=== PATIENT | male | born 1940 | race Caucasian/White ===

== ENCOUNTER 2023-04-02 08:44 | Day surgery (SDC) | payer MEDICARE ==
[2023-04-02] VITALS (9 sets, daily range): BP systolic 118–150; BP diastolic 61–92
[~2023-04-02] VITALS: Ht 177.8 cm; Wt 122.0 kg
[~2023-04-02 08:44] MED LIST: ACET500 PO; ALBU90OI INH; Aspir 8181 MG PO; COMBIVENT RESPIM4 G1; FURO20 PO; Flonase 0.05% N16 GM; GLIP2.5ER PO; LOSA50 PO; MONT10T PO; PIOG15 PO; POTA10T PO; TAMS.4ER PO; Triamcinolone A15 G3 TOP; ZOCOR20 MG PO
[2023-04-02 09:28] LABS: BASOPHILS ABSOLUTE AUTO 0.07 K/mm3 (0.00-0.23); BASOPHILS PERCENT AUTO 1 % (0-2); EOSINOPHILS ABSOLUTE AUTO 0.33 K/mm3 (0.00-0.68); EOSINOPHILS PERCENT AUTO 4 % (0-6); Hematocrit 43.8 % (37.0-53.0); Hemoglobin 14.5 g/dL (13.5-17.5); IMMATURE GRAN ABSOLUTE AUTO 0.03 K/mm3 (0.00-0.10); IMMATURE GRAN PERCENT AUTO 0 % (0-1); LYMPHOCYTES ABSOLUTE AUTO 1.31 K/mm3 (0.84-5.20); LYMPHOCYTES PERCENT AUTO 15 % (21-46); MONOCYTES ABSOLUTE AUTO 0.67 K/mm3 (0.16-1.47); MONOCYTES PERCENT AUTO 8 % (4-13); Mean Corpuscular HGB 26.9 pg (26.0-34.0); Mean Corpuscular HGB Conc 33.1 g/dL (31.5-36.5); Mean Corpuscular Volume 81 fL (80-100); Mean Platelet Volume 9.9 fL (9.1-12.4); NEUTROPHILS ABSOLUTE AUTO 6.19 K/mm3 (1.96-9.15); NEUTROPHILS PERCENT AUTO 72 % (41-73); Platelet Count 253 K/mm3 (150-400); RDW Coefficient Variation 15.2 % (11.7-14.2); RDW Standard Deviation 44.7 fL (35.1-46.3)
[2023-04-02 09:59] LABS: Bun/Creatinine Ratio 17.9 (12.0-20.0); Calcium, Blood 8.7 mg/dL (8.5-10.1); Creatinine, Blood 1.51 mg/dL (0.60-1.20); Potassium, Blood 3.7 mmol/L (3.5-5.5)
--- NOTE | 2023-04-02 15:15 | NUR ---
PATIENT ARRIVED TO RECOVERY ROOM RESTING COMFORTABLY IN BED. R GROIN SITE C/D/I SOFT/NONTENDER, NO EVIDENCE OF HEMATOMA. SOME MILD RIGHT LOWER EXTREMITY PAIN RELIEVED WITH RESPOSITIONING. VSS ON RA. PATIENT CONVERSING APPROPRIATELY.
--- NOTE | 2023-04-02 15:56 | NUR ---
HOB ELEVATED, R GROIN SITE C/D/I SOFT/NONTENDER, NO EVIDENCE OF BLEEDING. VSS ON RA. PT TOELRATING PO INTAKE WELL.
--- NOTE | 2023-04-02 16:51 | NUR ---
PATIENT STANDING AND USING URINAL AT BEDSIDE WITHOUT DIFFICULTY. L GROIN SITE C/D/I SOFT/NONTENDER, NO EVIDENCE OF BLEEDING. VSS ON RA
--- NOTE | 2023-04-02 17:15 | NUR ---
PATIENT AMBULATING TO RESTROOM USING WALKER WITHOUT DIFFICULTY. L GROIN SITE C/D/I SOFT/NONTENDER, NO EVIDENCE OF HEMATOMA. VSS ON RA.
--- NOTE | 2023-04-02 17:40 | NUR ---
PATIENT DISCHARGED HOME AT THIS TIME. DAUGHTER PRESENT AT BEDSIDE. DISCHARGE INSTRUCTIONS REVIEWED. OFFICE WILL CALL TO SCHEDULE FOLLOW UP APPOINTMENT. PIV REMOVED WITHOUT DIFFICULTY, CATHETER INTACT. L GROIN SITE C/D/I SOFT/NONTENDER, NO EVIDENCE OF HEMATOMA. PATIENT WHEELED TO HOSPITAL ENTRANCE AND DAUGHTER ABLE TO PROVIDE TRANSPORTATION HOME. ALL PATIENT BELONGINGS AND PAPERWORK LEFT WITH PATIENT.
== END 2023-04-02 23:04 | disposition home or self-care (01) ==
LOC: MHTC 08:44
PROVIDERS: Radiology Diagnostic Radiology
DX: I70.223 Atherosclerosis of native arteries of extremities with rest pain, bilateral legs (principal); E11.621 Type 2 diabetes mellitus with foot ulcer; L97.502 Non-pressure chronic ulcer of other part of unspecified foot with fat layer exposed; E11.51 Type 2 diabetes mellitus with diabetic peripheral angiopathy without gangrene; I10 Essential (primary) hypertension; F17.210 Nicotine dependence, cigarettes, uncomplicated
CPT/HCPCS: 76937; 80048; 85025; 99152; 99153; C1714; C1725; C1760; C1769; C1887; C1894; J1644; J2250; J3010; J7030; Q9967

== ENCOUNTER 2023-10-20 04:21 | Day surgery (SDC) | payer OTHER | END 2023-10-20 22:53 | disposition home or self-care (01) | LOC: WOUND 04:21 | DX: I73.9 Peripheral vascular disease, unspecified (principal); I10 Essential (primary) hypertension; E11.40 Type 2 diabetes mellitus with diabetic neuropathy, unspecified; F17.200 Nicotine dependence, unspecified, uncomplicated; Z88.8 Allergy status to other drugs, medicaments and biological substances | CPT/HCPCS: G0463 ==

== ENCOUNTER 2024-02-24 11:02 | Day surgery (SDC) | payer OTHER ==
[~2024-02-24] VITALS: Ht 177.8 cm; Wt 117.9 kg
[~2024-02-24 11:02] MED LIST changes: +OZEMPIC0.25 MG/02 SC; +TERB250 PO
[2024-02-24] MEDS ORDERED: NS 250 ML IV ONE (14:32)
[2024-02-24] MEDS ORDERED: Midazolam HCl 1MG / ML 2ML Vial ONE (14:32)
[2024-02-24] MEDS ORDERED: FentaNYL Citrate 50 MCG/ML 2 ML Injection ONE (14:32)
[2024-02-24] MEDS ORDERED: Nitroglycerin 2 MG/20 ML BTL ONE (14:33)
[2024-02-24] MEDS ORDERED: Heparin Sodium 1000 Units/ML 10ML MDV ONE (14:33)
[2024-02-24] MEDS ORDERED: NS 100 ML IV ONE (14:33)
[2024-02-24] MEDS ORDERED: NS 2,000 ML IV ONE (14:33)
[2024-02-24] MEDS ORDERED: Verapamil HCL 2.5 MG/ML 2ML Injection ONE (15:35)
[2024-02-24 16:20] VITALS: BP 128/71
[2024-02-24 16:30] VITALS: BP 128/70
[2024-02-24 16:45] VITALS: BP 128/70
--- NOTE | 2024-02-24 16:55 | NUR ---
PATIENT BACK FROM PROCEDURE AT 1625, DRWOSY, AWAKENS TO VOICE, DENIES COMPLAINTS. RIGHT GROIN SITE STABLE, SOFT AND NONTENDER, W/O SWELLING, HEMATOMA, OR BLEEDING. RIGHT PEDAL SITE WNL WELL, W/O SWELLING, HEMATOMA, OR BLEEDING. VSS. PT ABLE TO TOLERATE SIPS OF APPLEJUICE. SITE CHECKS AND CIRC CHECK Q 15MIN. POSITIVE DOPPLER TO RIGHT AND LEFT PT/DP.
[2024-02-24 17:00] VITALS: BP 128/70
[2024-02-24 17:30] VITALS: BP 147/58
--- NOTE | 2024-02-24 17:49 | NUR ---
Pt groin site assessed, remains unchanged and wnl, Pt HOB elevated at this time, site remains wnl. food and fluids provided. family to bedside.
[2024-02-24 18:00] VITALS: BP 159/85
--- NOTE | 2024-02-24 18:43 | NUR ---
PT DISCHARGED HOME IN STABLE CONDITION AT 1835. VERBAL AND WRITTEN DISCHARGE INSTRUCTIONS TO PT AND PT'S FAMILY. PT VOIDING AND EATING W/O DIFFICULTY. LEFT GROIN STABLE W/O HEMATOMA, SWELLING, TENDERNESS, OR BLEEDING. RIGHT PEDAL SITE STABLE WELL. VSS. PT DISCHARGED HOME IN CARE OF SON-IN-LAW.
== END 2024-02-24 23:00 | disposition home or self-care (01) ==
LOC: MHTC 11:02
DX: E11.51 Type 2 diabetes mellitus with diabetic peripheral angiopathy without gangrene (principal); I70.261 Atherosclerosis of native arteries of extremities with gangrene, right leg; L97.513 Non-pressure chronic ulcer of other part of right foot with necrosis of muscle; F17.210 Nicotine dependence, cigarettes, uncomplicated; Z79.899 Other long term (current) drug therapy; Z79.84 Long term (current) use of oral hypoglycemic drugs; Z88.8 Allergy status to other drugs, medicaments and biological substances
CPT/HCPCS: 36200; 36245; 36248; 37228; 37232; 75625; 75716; 75774; 76937; 99152; 99153; C1725; C1760; C1769; C1887; C1894; J1644; J2250; J3010; J7030; J7050; Q9967

== ENCOUNTER 2024-03-11 09:02 | Day surgery (SDC) | payer OTHER ==
[~2024-03-11] VITALS: Ht 177.8 cm; Wt 115.0 kg
[2024-03-11 09:30] VITALS: BP 117/62
[2024-03-11] MEDS ORDERED: NS 250 ML IV ONE (10:22)
[2024-03-11] MEDS ORDERED: Heparin Sodium 1000 Units/ML 10ML MDV ONE ×2 (10:22→14:05)
[2024-03-11] MEDS ORDERED: NS 1,000 ML IV ONE ×2 (10:22→13:25)
[2024-03-11] MEDS ORDERED: Nitroglycerin 2 MG/20 ML BTL ONE (10:22)
[2024-03-11] MEDS ORDERED: FentaNYL Citrate 50 MCG/ML 2 ML Injection ONE ×2 (13:25→14:46)
[2024-03-11] MEDS ORDERED: Midazolam HCl 1MG / ML 2ML Vial ONE (13:25)
[2024-03-11] MEDS ORDERED: NS 100 ML IV ONE (14:39)
[2024-03-11 16:04] VITALS: BP 142/65
--- NOTE | 2024-03-11 16:07 | NUR ---
PT BACK TO RECOVERY ROOM. PT GIVEN SIPS OF WATER. REMINDED TO LAY FLAT. PT DEMONSTRATES UNDERSTANDING. L GROIN SITE IS SOFE AND NON TENTDER, NO HEMATOMA.
[2024-03-11 16:15] VITALS: BP 120/66
[2024-03-11] MEDS ORDERED: CLOP75 PO (16:26)
[2024-03-11] MEDS ORDERED: Clopidogrel Bisulfate 300 MG Cap ONE (16:28)
[2024-03-11 16:30] VITALS: BP 129/66
--- NOTE | 2024-03-11 16:47 | NUR ---
PT SITTING UP AT 30 DEGREES. TAKING SIPS OF WATER, GROIN SITE IS SOFE AND NONTENDER, NO BLEEDING.
--- NOTE | 2024-03-11 17:12 | NUR ---
REPROT TO JOSE SINGER TO ASSUME CARE.
--- NOTE | 2024-03-11 17:29 | NUR ---
patient sitting up in bed left groin site soft and nontender, no hematoma, no bleeding patient eating dinner
--- NOTE | 2024-03-11 18:13 | NUR ---
patient verbalized understanding of discharge instructions and precautions, up to restroom and dressed by self without difficulty, left groin site remains soft and nontender, no hematoma, no bleeding, and dressing inatct.iv site dced with catheter itact, patient discharged via wheelchair to waiting car and family driving.
== END 2024-03-11 22:51 | disposition home or self-care (01) ==
LOC: MHTC 09:02
DX: E11.52 Type 2 diabetes mellitus with diabetic peripheral angiopathy with gangrene (principal); I70.261 Atherosclerosis of native arteries of extremities with gangrene, right leg; I70.222 Atherosclerosis of native arteries of extremities with rest pain, left leg; F17.290 Nicotine dependence, other tobacco product, uncomplicated; Z88.8 Allergy status to other drugs, medicaments and biological substances; Z79.82 Long term (current) use of aspirin; Z79.84 Long term (current) use of oral hypoglycemic drugs; Z79.899 Other long term (current) drug therapy
CPT/HCPCS: 36247; 37226; 75716; 75774; 76937; 85347; 99152; 99153; A9270; C1725; C1760; C1769; C1874; C1887; C1894; C9772; J1644; J2250; J3010; J7030; J7050; Q9967

== ENCOUNTER 2024-03-26 09:01 | Day surgery (SDC) | payer OTHER ==
[2024-03-26] VITALS (7 sets, daily range): BP systolic 110–133; BP diastolic 57–90
[~2024-03-26] VITALS: Ht 177.8 cm; Wt 115.2 kg
[~2024-03-26 09:01] MED LIST changes: +CLOP75 PO
[2024-03-26] MEDS ORDERED: NS 500 ML IV ONE (09:05)
[2024-03-26] MEDS ORDERED: NS 1,000 ML IV ONE ×3 (09:05→11:28)
[2024-03-26] MEDS ORDERED: Heparin Sodium 1000 Units/ML 10ML MDV ONE ×2 (09:05→10:39)
[2024-03-26] MEDS ORDERED: Nitroglycerin 2 MG/20 ML BTL ONE (09:06)
[2024-03-26] MEDS ORDERED: Midazolam HCl 1MG / ML 2ML Vial ONE (09:10)
[2024-03-26] MEDS ORDERED: FentaNYL Citrate 50 MCG/ML 2 ML Injection ONE (09:10)
[2024-03-26] MEDS ORDERED: Verapamil HCL 2.5 MG/ML 2ML Injection ONE (11:07)
--- NOTE | 2024-03-26 14:25 | NUR ---
PT AMBULATES TO RESTROOM AND BACK WITHOUT DIFF. PT DRESSES SELF. DENIES NEEDS. PT SITES REMAIN STABLE. C/D/I. PT VERBALIZES UNDERSTANDING WRITTEN AND VERBAL INSTRUCTIONS. DENIES QUESTIONS. PT IV DC'D. CATH INTACT. PRESSURE DSG APPLIED
== END 2024-03-26 15:29 | disposition home or self-care (01) ==
LOC: MHTC 09:01
DX: E11.52 Type 2 diabetes mellitus with diabetic peripheral angiopathy with gangrene (principal); I70.223 Atherosclerosis of native arteries of extremities with rest pain, bilateral legs; E11.42 Type 2 diabetes mellitus with diabetic polyneuropathy; F17.290 Nicotine dependence, other tobacco product, uncomplicated; Z79.82 Long term (current) use of aspirin; Z79.84 Long term (current) use of oral hypoglycemic drugs; Z79.899 Other long term (current) drug therapy; Z88.8 Allergy status to other drugs, medicaments and biological substances; Z89.421 Acquired absence of other right toe(s)
CPT/HCPCS: 36217; 36218; 37220; 37224; 75716; 75774; 76937; 99152; 99153; C1725; C1760; C1769; C1887; C1894; C9772; J1644; J2250; J3010; J7030; J7050; Q9967

== ENCOUNTER → 2024-03-29 | Outpatient (CLI) | payer OTHER | END | disposition home or self-care (01) | LOC: LAB 11:28 → LAB SHORT 11:28 | DX: Z89.421 Acquired absence of other right toe(s) (principal) | CPT/HCPCS: 88305; 88311 ==

== ENCOUNTER 2024-05-31 17:02 | Inpatient (IN) | payer OTHER ==
[~2024-05-31] VITALS: Ht 177.8 cm; Wt 110.0 kg
[2024-05-31 18:05] LABS: BASOPHILS ABSOLUTE AUTO 0.04 K/mm3 (0.00-0.23); BASOPHILS PERCENT AUTO 0 % (0-2); EOSINOPHILS ABSOLUTE AUTO 0.15 K/mm3 (0.00-0.68); EOSINOPHILS PERCENT AUTO 1 % (0-6); Hematocrit 38.5 % (37.0-53.0); IMMATURE GRAN ABSOLUTE AUTO 0.04 K/mm3 (0.00-0.10); IMMATURE GRAN PERCENT AUTO 0 % (0-1); LYMPHOCYTES PERCENT AUTO 8 % (21-46); MONOCYTES ABSOLUTE AUTO 0.96 K/mm3 (0.16-1.47); MONOCYTES PERCENT AUTO 8 % (4-13); Mean Corpuscular HGB 27.1 pg (26.0-34.0); Mean Corpuscular HGB Conc 33.8 g/dL (31.5-36.5); Mean Corpuscular Volume 80 fL (80-100); Mean Platelet Volume 9.4 fL (9.1-12.4); NEUTROPHILS ABSOLUTE AUTO 9.75 K/mm3 (1.96-9.15); NEUTROPHILS PERCENT AUTO 82 % (41-73); Platelet Count 325 K/mm3 (150-400); RDW Coefficient Variation 14.6 % (11.7-14.2); RDW Standard Deviation 42.8 fL (35.1-46.3); White Blood Cell Count 11.94 K/mm3 (4.00-11.30)
[2024-05-31 18:34] LABS: Albumin, Blood 2.6 g/dL (3.4-5.0); Albumin/Globulin Ratio 0.6 (0.8-1.8); Bilirubin, Total 0.3 mg/dL (0.1-1.0); Bun/Creatinine Ratio 19.4 (12.0-20.0); Calcium, Blood 9.3 mg/dL (8.5-10.1); Creatinine, Blood 1.29 mg/dL (0.60-1.20); Globulin, Blood 4.5 g/dL (2.2-4.0); Total Protein, Blood 7.1 g/dL (6.4-8.2)
[2024-05-31] MEDS ORDERED: Cefepime HCl 2,000 MG in NS 100 ML IV ONE (23:15)
[2024-05-31] MEDS ORDERED: Ketorolac Tromethamine 15mg Vial IV ONE (23:20)
[2024-06-01] MEDS ORDERED: Acetaminophen 325 MG TABLET PO PRN (00:30)
[2024-06-01] MEDS ORDERED: Ondansetron HCl 2 MG / ML 2ML Vial IV PRN (00:35)
[2024-06-01] MEDS ORDERED: Vancomycin HCL 2,000 MG in NS 500 ML IV ONE (01:00)
[2024-06-01 05:33] LABS: Bun/Creatinine Ratio 20.6 (12.0-20.0); Calcium, Blood 8.7 mg/dL (8.5-10.1); Creatinine, Blood 1.41 mg/dL (0.60-1.20); Potassium, Blood 3.9 mmol/L (3.5-5.5)
[2024-06-01 06:48] LABS: BASOPHILS ABSOLUTE AUTO 0.05 K/mm3 (0.00-0.23); BASOPHILS PERCENT AUTO 0 % (0-2); EOSINOPHILS ABSOLUTE AUTO 0.41 K/mm3 (0.00-0.68); EOSINOPHILS PERCENT AUTO 4 % (0-6); Hematocrit 35.9 % (37.0-53.0); IMMATURE GRAN ABSOLUTE AUTO 0.04 K/mm3 (0.00-0.10); IMMATURE GRAN PERCENT AUTO 0 % (0-1); LYMPHOCYTES ABSOLUTE AUTO 1.23 K/mm3 (0.84-5.20); LYMPHOCYTES PERCENT AUTO 11 % (21-46); MONOCYTES ABSOLUTE AUTO 0.97 K/mm3 (0.16-1.47); MONOCYTES PERCENT AUTO 9 % (4-13); Mean Corpuscular HGB 27.1 pg (26.0-34.0); Mean Corpuscular HGB Conc 33.4 g/dL (31.5-36.5); Mean Corpuscular Volume 81 fL (80-100); Mean Platelet Volume 9.2 fL (9.1-12.4); NEUTROPHILS ABSOLUTE AUTO 8.47 K/mm3 (1.96-9.15); NEUTROPHILS PERCENT AUTO 76 % (41-73); Platelet Count 304 K/mm3 (150-400); RDW Coefficient Variation 14.6 % (11.7-14.2); RDW Standard Deviation 43.5 fL (35.1-46.3); Red Blood Cell Count 4.42 M/mm3 (4.30-5.90); White Blood Cell Count 11.17 K/mm3 (4.00-11.30)
[2024-06-01] MEDS ORDERED: Docusate Sodium 100 MG Cap PO SCH (09:00)
[2024-06-01] MEDS ORDERED: Enoxaparin 40 MG/0.4 ML SYR SC SCH (09:00)
[2024-06-01] MEDS ORDERED: Atorvastatin 10 MG Tab PO SCH (09:00)
[2024-06-01] MEDS ORDERED: Lactobacil 2-S.Thermo-Bifido 1 1 Cap PO SCH (09:00)
[2024-06-01] MEDS ORDERED: Losartan Potassium 50 MG Tab PO SCH (09:00)
[2024-06-01] MEDS ORDERED: CefTRIAXone Sodium 2,000 MG in NS 100 ML IV SCH (11:00)
[2024-06-01] MEDS ORDERED: Insulin Regular 100 UNIT/ML 10ML Vial SC SCH (12:00)
[2024-06-01 13:49] VITALS: BP 132/68
[2024-06-01] MEDS ORDERED: HYDROcodone 5-APAP 325 TAB PO PRN ×2 (14:00→16:35)
--- NOTE | 2024-06-01 19:18 | NUR ---
new admission pt up rom er vss in independant in . right index toe amputation red and swollen with fowel smell, pictures taken and in chart. dr Osorio in to assess and scheduled for sx tomorrow. call light within reach.
[2024-06-01 19:31] VITALS: BP 117/42
[2024-06-02] MEDS ORDERED: NS 250 ML IV PRN (01:35)
[2024-06-02] MEDS ORDERED: Vancomycin HCL 1,500 MG in NS 250 ML IV SCH (02:00)
[2024-06-02 02:24] VITALS: BP 130/65
--- NOTE | 2024-06-02 04:22 | NUR ---
SHIFT SUMMARY ADMITTED FOR OSTEOMYELITIS OF RIGHT FOOT. DNR CODE. PLAN IS FOR ANOTHER SURGICAL PROCEDURE TODAY FOR FURTHER TOE AMPUTATIONS ON THAT FOOT. 2ND RIGHT TOE PREVIOUSLY AMPUTATED ON 05/29/24. PODIATRY CONSULT IS DR. MCFADDEN. ADA DIET TYPICALLY. HE HAS BEEN ON CLEAR LIQUIDS SINCE MIDNIGHT. HE WILL BE NPO AFTER A CLEAR LIQUID BREAKFAST. ON RA. A&O X4. INDEPENDENT IN ROOM W/CANE. PAIN MEDICATION GIVEN THIS SHIFT. IV ANTIB RX GIVEN THIS SHIFT.
[2024-06-02 07:26] VITALS: BP 141/66
[2024-06-02] MEDS ORDERED: Arginine/Glutamine/Calcium Hmb 1 Packet PO SCH (11:35)
[2024-06-02] MEDS ORDERED: FentaNYL Citrate 50 MCG/ML 2 ML Injection IV PRN (13:35)
[2024-06-02] MEDS ORDERED: Albuterol HFA200 ACT/6.7 GM INH INH PRN (13:40)
[2024-06-02] MEDS ORDERED: Aspirin 81 MG TabEC PO SCH (14:00)
[2024-06-02] MEDS ORDERED: Furosemide 20 MG Tab PO SCH (14:00)
[2024-06-02 14:47] VITALS: BP 124/67
[2024-06-02 16:47] VITALS: BP 136/61
--- NOTE | 2024-06-02 19:29 | NUR ---
SHIFT SUMMARY- PT ALERT AND ORIENTED, INDEPENDENT IN THE ROOM. PULSE IN THE PT RIGHT FOOT IS PPRESENT BUT VERY FAINT, MD AWARE. PLAN IS FOR THE PT TO GO TO THE CLINICAL LABORATORY ASSISTANT WITH DR CROWE TOMORROW FOR REVASC PROCEDURE. NPO AT MIDNIGHT FOR THE PROCEDURE. HEPARIN ORDERED FOR DVT PROPHYLAXIS SCD'S ARE TOO PAINFUL TO USE, OK FOR PT TO HAVE HEPARIN TONIGHT TOMORROW AM THE DOSE SHOULD BE HELD PRE PROCEDURE (PER DR FLYNN). PT PO PLAVIX AND ASPIRIN DC'D PER DR FLYNN. FRIDAY THE PT WILL GO FOR TOE AMPUTATION WITH DR MCFADDEN. FAMILY IS AWARE OF THE PLAN IS THE PT. PT HAD A FULL SHOWER TODAY, FOOT WOUND KELLY, IT HAS BEEN (DR DOLAN). PT IN BED, CALL LIGHT IN REACH NO S&S OF DISTRESS NOTED AT THE TIME OF BEDSIDE REPORT.
[2024-06-02 19:32] VITALS: BP 125/62
[2024-06-02] MEDS ORDERED: Heparin Sodium 5000 Units/ML 1ML MDV SC SCH (21:00)
[2024-06-03] VITALS (12 sets, daily range): BP systolic 105–167; BP diastolic 56–78
[2024-06-03 01:32] LABS: Vancomycin, Trough 11.5 ug/mL (5.0-10.0)
[2024-06-03] MEDS ORDERED: Vancomycin HCL 1,750 MG in NS 500 ML IV SCH (02:30)
[2024-06-03 03:05] LABS: Bun/Creatinine Ratio 24.6 (12.0-20.0); Calcium, Blood 9.3 mg/dL (8.5-10.1); Creatinine, Blood 1.18 mg/dL (0.60-1.20); Potassium, Blood 4.2 mmol/L (3.5-5.5)
--- NOTE | 2024-06-03 04:03 | NUR ---
SHIFT SUMMARY ADMITTED FOR OSTEOMYELITIS OF RIGHT FOOT. FULL CODE. REVASCULARIZATION PLANNED FOR TODAY. PT HAS BEEN NPO SINCE MIDNIGHT. DR. MCFADDEN IS PODIATRY CONSULT. ANTIB RX ARE SCHEDULED. A&O X4, ON RA, INDEPENDENT IN ROOM. Q6 CBG'S, LOW SS. NO NEW CONCERNS THIS SHIFT.
[2024-06-03] MEDS ORDERED: Fluticasone 0.05% Nasal Spray SCH (09:00)
[2024-06-03] MEDS ORDERED: Clopidogrel Bisulfate 75 MG Tab PO SCH (09:00)
[2024-06-03] MEDS ORDERED: Montelukast Sodium 10 MG Tab PO SCH (09:00)
[2024-06-03] MEDS ORDERED: Tamsulosin HCl 0.4 MG Cap PO SCH (09:00)
[2024-06-03] MEDS ORDERED: NS 100 ML IV ONE (15:53)
[2024-06-03] MEDS ORDERED: Heparin Sodium 1000 Units/ML 10ML MDV ONE ×2 (15:53→16:55)
[2024-06-03] MEDS ORDERED: NS 250 ML IV ONE (15:54)
[2024-06-03] MEDS ORDERED: NS 1,000 ML IV ONE ×2 (15:54→16:16)
[2024-06-03] MEDS ORDERED: FentaNYL Citrate 50 MCG/ML 2 ML Injection ONE (16:16)
[2024-06-03] MEDS ORDERED: Midazolam HCl 1MG / ML 2ML Vial ONE (16:16)
[2024-06-03] MEDS ORDERED: Verapamil HCL 2.5 MG/ML 2ML Injection ONE (17:07)
[2024-06-03] MEDS ORDERED: Nitroglycerin 2 MG/20 ML BTL ONE (17:45)
--- NOTE | 2024-06-03 18:34 | NUR ---
TRANSFER TO PCU POST REVASC. ALERT AND ORIENTED. OVERALL SLEEPY. ABLE TO TELL ME DETAILS OF WHY HE IS HERE AND ABLE TO VERBALIZE INSTRUCTION ON LAYING FLAT POST REVASC WITH LEFT FEMORAL SITE. ON ROOM AIR SATING MID 90'S. DENIES SOB/COUGH. TELE SHOWING SR WITH HR 70-80'S. DENIES CHEST PAIN/PRESSURE/PALPITATIONS. S/P REVASC TO RLE WITH LEFT GROIN SITE WELL RIGHT PEDAL SITE. SITES SOFT AND NONTENDER. NO SIGNS OF BLEEDING. DRESSING C/D/I. VERY FAINT RIGHT PEDAL PULSE. RIGHT LOWER EXTREMITY PALE, COOL AND DRY. PLAN FOR NPO AT MIDNIGHT FOR SURGERY WITH PODIATRY 06/04. Q6 BLOOD SUGARS. POST REVASC VITALS IN PROGRESS. CURRENT VITALS STABLE. PATIENT DENIES PAINS, LAYING FLAT IN BED. CALL LIGHT IN REACH.
--- NOTE | 2024-06-03 18:35 | NUR ---
TRANSFER NOTE- PT WAS TRANSFERED TO PCU 18 AFTER REVASC PROCEDURE. CALLED AND GAVE TELEPHONE REPORT TO BOARDER HAND. PT BELONGINGS WERE TAKEN DOWN TO PCU 18. NO S&S OF DISTRESS NOTED AT THE TIME OF PT TRANSPORT VIA TO COVERSTITCH MACHINE OPERATOR.
[2024-06-04] VITALS (21 sets, daily range): BP systolic 101–147; BP diastolic 52–73
--- NOTE | 2024-06-04 04:55 | NUR ---
SHIFT SUMMARY THIS RN ASSUMED CARE OF PATIENT AT 1900. PT A&O X4. ABLE TO MAKE NEEDS KNOWN. CALLING APPROPRIATELY. VSS. LEFT FEMORAL ACCESS SITE SOFT/NONTENDER, NO BLEEDING/OOZING NOTED. DRESSING INTACT. ACCESS ON RT FOOT WNL, NO BLEEDING/DISCOLORATION NOTED, DRESSING INTACT. 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 PT HAS BEEN NPO SINCE MIDNIGHT FOR AMPUTATION TODAY. PT ABLE TO REPOSITION SELF INDEPENDENTLY IN BED. SBA TO BATHROOM WITH FWW. NO ACUTE CHANGES OVERNIGHT. BED IN LOWEST POSITION AND CALL LIGHT WITHIN REACH. THIS RN WILL REPORT TO ONCOMING DAYSHIFT RN.
[2024-06-04] MEDS ORDERED: propofoL 100 ML IV ONE (12:10)
[2024-06-04] MEDS ORDERED: Lactated Ringer's 1,000 ML IV SCH (12:15)
[2024-06-04] MEDS ORDERED: Bupivacaine 0.5% HCl 5 MG/ML 30MLVIAL ONE (12:26)
--- NOTE | 2024-06-04 12:40 | NUR ---
Patient confirms NPO status and agrees with scheduled surgery. History, Chart, Medications and Allergies reviewed before start of procedure.
--- NOTE | 2024-06-04 13:05 | NUR ---
AT ABOUT 1140 THE PT HAD A 6 SEC BEAT RUN OF SVT. PT ASYPTOMATIC. DR. KARIS DOLAN.
--- NOTE | 2024-06-04 13:07 | NUR ---
MORNING SUMMARY THE PT IS A&OX4, SBA W/ FWW FOR TX, AND HE IS ABLE TO MAKE HIS NEEDS KNOWN . THE PT HAS BEEN NPO FOR SURGERY W/ AMPUTATION OF THE 2-3 TOES ON THE RIGHT FOOT. THE PT HAS DENIED ANY PAIN, BUT HAS CHRONIC NEUROPATHY IN BLE. HE HAS MULTIPLE WOUNDS ON HIS RIGHT FOOT THAT ARE OPEN TO AIR. AWARE. THE PT HAS BEE SR W/ BB ON TELE AND BP STABLE. HE IS ON RA W/ SP02 >93% AND HE DENIES ANY SOB. THE PT WENT TO THE OR ABOUT 1215. HE IS SURGICAL STATUS W/ TELE. SEE NOTES FOR ANY UPDATES.
[2024-06-04] MEDS ORDERED: Lidocaine 1%-Epineph 1:100000 20 ML MDV INJ ONE (13:10)
[2024-06-04] MEDS ORDERED: Albuterol 2.5 MG/3 ML VIAL ONE (14:01)
--- NOTE | 2024-06-04 15:17 | NUR ---
PT BACK FROM THE OR AFTER THIRD TOE AMPUTATION ON THE RIGHT FOOT. THE PT HAS HIS FOOT WRAPPED AND EXPOSING HIS GREAT TOE AND FOURTH AND FIFTH TOE. HIS FOURTH AND FIFTH TOE ARE PURPLE IN COLOR WITH CAP REFILL 3-[address] MCFADDEN AWARE PER REPORT FROM EDUARDO LAUREN RN. HIS GREAT TOE HAS CAP REFILL <3 SEC. THE PT IS VERY DROWSY AND IS SLEEPING. VS STABLE AND RUNNING IN SEQUENCE PER PROTOCOL. WHEN ASKED IF THE PT WANTS THIS DOCUMENT SPECIALIST TO CALL FAMILY HE SAID "NO THEY WILL BE IN SOON". SEE NOTES FOR UPDATES.
--- NOTE | 2024-06-04 16:50 | NUR ---
When assessing the pt's right foot about 1630 his fourth and fifth toes were noteably more purple in color and the cap refill is 5-6 seconds. His right great toe is at three seconds in cap refill. corporate quality engineer evaluated the pt's foot as well. Dr. Osorio was called and stated to loosen the uli wrap so it is on without any stretch and reevaluate. Call if it is unchanged. See notes for updates.
[2024-06-04] MEDS ORDERED: Insulin Regular 100 UNIT/ML 10ML Vial SC SCH ×2 (17:25→21:00)
--- NOTE | 2024-06-04 17:51 | NUR ---
AFTER LOOSENING THE PT'S HARSHA WRAP PER DR. MCFADDEN REQUEST, THE PT'S RIGHT GREAT TOE HAS CAP REFILL <3 SECONDS AND HAS SOME PINK UNDERTONE W/ SOME PURPLE STILL NOTE. THE PT'S FIFTH TOE HAS CAP REFILL AT THREE SECONDS AND HAS BETTER COLOR WELL. PURPLE TONES STILL NOTED. THE PT'S SECOND TOE HAS CAP REFILL 3-4 SECONDS AND IS A DUSKY PURPLE COLOR. THIS WAS DISCUSSED WITH THE GLAZE HANDLER. VS REMAIN STABLE. FAMILY AT BEDSIDE AND UPDATED ON CARE.
--- NOTE | 2024-06-04 19:12 | NUR ---
Dr. Osorio to bedside to see the pt. Care handed off the Jovan GARCIA.
--- NOTE | 2024-06-04 21:10 | NUR ---
START OF SHIFT THIS RN ASSUMED CARE AT APPROXIMATELY 1905. MD AT BEDSIDE TO ASSESS R FOOT AND TOES. MD STATED TO CONTINUE TO MONITOR AND WILL REASSESS IN THE AM. PT RESTING COMFORTABLY IN BED W/O ANY PAIN OR COMPLAINTS. PT FOOT DRESSING REDRESSED AND PICTURE UPDATED IN CHART. WILL CONTINUE PLAN OF CARE.
[2024-06-05 01:36] LABS: BASOPHILS ABSOLUTE AUTO 0.06 K/mm3 (0.00-0.23); BASOPHILS PERCENT AUTO 1 % (0-2); EOSINOPHILS PERCENT AUTO 4 % (0-6); Hematocrit 35.4 % (37.0-53.0); Hemoglobin 11.6 g/dL (13.5-17.5); IMMATURE GRAN ABSOLUTE AUTO 0.04 K/mm3 (0.00-0.10); IMMATURE GRAN PERCENT AUTO 0 % (0-1); LYMPHOCYTES ABSOLUTE AUTO 1.05 K/mm3 (0.84-5.20); LYMPHOCYTES PERCENT AUTO 9 % (21-46); MONOCYTES ABSOLUTE AUTO 0.88 K/mm3 (0.16-1.47); MONOCYTES PERCENT AUTO 8 % (4-13); Mean Corpuscular HGB 26.5 pg (26.0-34.0); Mean Corpuscular HGB Conc 32.8 g/dL (31.5-36.5); Mean Corpuscular Volume 81 fL (80-100); Mean Platelet Volume 9.4 fL (9.1-12.4); NEUTROPHILS ABSOLUTE AUTO 8.84 K/mm3 (1.96-9.15); NEUTROPHILS PERCENT AUTO 79 % (41-73); Platelet Count 377 K/mm3 (150-400); RDW Coefficient Variation 14.6 % (11.7-14.2); RDW Standard Deviation 43.3 fL (35.1-46.3); Red Blood Cell Count 4.38 M/mm3 (4.30-5.90); White Blood Cell Count 11.27 K/mm3 (4.00-11.30)
[2024-06-05 02:01] LABS: Anion Gap 10 mmol/L (3-11); Blood Urea Nitrogen 25 mg/dL (8-24); Bun/Creatinine Ratio 19.7 (12.0-20.0); CO2, Blood 27 mmol/L (21-32); Calcium, Blood 8.5 mg/dL (8.5-10.1); Chloride, Blood 109 mmol/L (98-108); Creatinine, Blood 1.27 mg/dL (0.60-1.20); Glomerular Filtration Rate 57 (60-); Glucose, Blood 122 mg/dL (70-99); Potassium, Blood 3.6 mmol/L (3.5-5.5); Sodium, Blood 142 mmol/L (136-145); Vancomycin, Trough 17.5 ug/mL (5.0-10.0)
[2024-06-05 03:02] VITALS: BP 132/60
--- NOTE | 2024-06-05 06:34 | NUR ---
SHIFT SUMMARY PT ALERT AND ORIENTED TIMES 4. PT TRANSFER FROM PCU. PT POST OP TODAY FROM RIGHT 3RD TOE AMPUTATION. DRESSING CHANGED JUST PRIOR TO TRANSFER AND IS CLEAN, NO SIGNS OF LEAKING. PT MADE COMFORTABLE IN BED AND APPEARS ABLE TO MAKE NEEDS KNOWN. PT ON ROOM AIR, HAS RIGHT FOOT BOOT FOR AMBULATING. BED IN LOW POSITION, CALL LIGHT WITHIN REACH, RAILS TIMES 2.
[2024-06-05 07:35] VITALS: BP 132/64
[2024-06-05] MEDS ORDERED: OxyCODONE HCL 5 MG TAB PO PRN (10:50)
[2024-06-05 15:06] VITALS: BP 123/65
--- NOTE | 2024-06-05 17:56 | NUR ---
SHIFT SUMMARY MR MENDOZA HAD CONCERNS OVER PAIN CONTROL THIS MORNING. HE SAID WHEN HE HAD HIS LAST TOE AMPUTATION HE DID NOT HAVE MUCH PAIN. DR DYSON NOTIFIED AND PAIN MEDICATIONS SWITCHED TO OXY WHICH WORKED WELL TO HELP HIS COMFORT. HE HAS A SURGICAL SHOE AND HAS BEEN REMINDED NOT TO GET UP WITHOUT WEARNING IT, REQUESTED THAT HE NOT GET UP WITHOUT CALLING FOR ASSISTANCE, AND TO ONLY PARIALLY WEIGHT BEAR ON THE RIGHT FOOT. HE DID HAVE SOME BLEEDING THROUGH TO THE OUTSIDE OF THE DRESSING AND THE KERLEX WRAP WAS REMOVED AND REPLACED. ON TELEMETRY IN SR, NO CALLS FROM [facility]. TOES THAT ARE VISIBLE ON THE RIGHT FOOT ARE PALE, SLOW CAPILLARY REFILL. PT SAID BOTH FEET HAVE DECREASED SENSATION WHICH IS BASELINE FOR HIM. BED LOW, CALL LIGHT IN REACH.
[2024-06-05 21:25] VITALS: BP 132/59
[2024-06-06 02:38] VITALS: BP 141/67
[2024-06-06 06:29] LABS: Bun/Creatinine Ratio 23.9 (12.0-20.0); Calcium, Blood 8.8 mg/dL (8.5-10.1); Creatinine, Blood 1.17 mg/dL (0.60-1.20); Potassium, Blood 3.8 mmol/L (3.5-5.5)
[2024-06-06 07:51] VITALS: BP 134/68
[2024-06-06 15:06] VITALS: BP 118/55
--- NOTE | 2024-06-06 16:43 | NUR ---
SHIFT SUMMARY MR MENDOZA REPORTS THAT HIS PAIN IS WELL CONTROLLED TODAY ON THE OXYCODONE. HE HAS BEEN UP THE THE BATHROOM, UP TO THE CHAIR, HE'S DOING WELL PARTIALLY WEIGHT BEARING WITH THE WALKER AND SURGICAL SHOE. HE STILL HAS SOME BLOODY DRAINAGE ONTO THE KERLEX OUTER BANDAGE. HIS VISIBLE TOES ARE MORE PINK AND WARM TODAY, GOOD CAPILLARY REFILL. HE DOES HAVE NUMBNESS TO THE RIGHT FOOT. SUPPORTIVE FAMILY HERE TODAY. IN BED NOW, BED LOW, CALL LIGHT IN REACH.
[2024-06-06 19:57] VITALS: BP 131/59
[2024-06-07 03:56] VITALS: BP 139/64
--- NOTE | 2024-06-07 07:38 | NUR ---
SHIFT SUMMARY PT ALERT AND ORIENTED TIMES 4. PT DAY 3 POST OP, FROM RIGHT 3RD TOE AMPUTATION. DRESSING IS CLEAN, NO SIGNS OF LEAKING. PT MADE COMFORTABLE IN BED AND ABLE TO MAKE NEEDS KNOWN. PT ON ROOM AIR, HAS RIGHT FOOT BOOT . PT ABLE TO AMBULATE TO RESTROOM WITH MIN ASSIST. PER PT REQUEST PAIN MEDICATION GIVEN Q4. PT STATES THIS IS HELPING MANAGE HIS PAIN GREATLY. BED IN LOW POSITION, CALL LIGHT WITHIN REACH, RAILS TIMES 2.
[2024-06-07 07:53] VITALS: BP 140/70
[2024-06-07 15:08] VITALS: BP 113/55
--- NOTE | 2024-06-07 18:09 | NUR ---
PATIENT IS ALERT AND ORIENTED AND COOPERATIVE WITH CARE. ON RA. VSS. DR. MCFADDEN ASSESSED THE SURGICAL SITE THIS AFTERNOON AND CLEANSED AND DRESSED THE WOUND. PICTURES WERE TAKEN. DR. MCFADDEN SAID HE WILL PLACE WOUND CARE ORDERS. PATIENT GETS UP TO CHAIR AND THE BATHROOM WITH 1PA FWW AND THE BOOT. FAMILY VISITED TODAY. WILL CONTINUE TO MONITOR.
[2024-06-07 19:39] VITALS: BP 147/61
[2024-06-08 02:13] VITALS: BP 136/47
--- NOTE | 2024-06-08 06:07 | NUR ---
SHIFT SUMMARY UNEVENTFUL SHIFT, UP TO BR SEVERAL TIMES WITH SBA TO VOID, STATES ALSO DOES THIS AT HOME. DIABETIC SHOE WORN WHEN OOB, RECEIVED OXYCODONE 10MG FOR FOOT PAIN X1 EARLY IN SHIFT,REPORTS WAS EFFECTIVE AND THAT LASTED ALL NIGHT. RT FOOT OUTER DRESSING REINFORCED X1 DUE TO LOOSE(PACKING NOT DISLODGED), SEROSANGUINOUS DRAINAGE (SMALL AMT) NOTED ON PREVIOUS GAUZE DSG.
[2024-06-08] MEDS ORDERED: Ciprofloxacin 500 MG Tab PO SCH (11:00)
[2024-06-08] MEDS ORDERED: COMBIVENT RESPIM4 G1 INH ×2 (11:39)
[2024-06-08] MEDS ORDERED: OZEMPIC0.25 MG/02 SC ×2 (11:40)
[2024-06-08] MEDS ORDERED: JUVEN PACKET1 EAC3 PO ×2 (11:41)
[2024-06-08] MEDS ORDERED: DOCU100 PO ×2 (11:42)
[2024-06-08] MEDS ORDERED: CIPR500 PO ×2 (11:42)
[2024-06-08] MEDS ORDERED: VISBIOME 112.51 EACH PO ×2 (11:43)
[2024-06-08] MEDS ORDERED: OXYC5 PO ×2 (11:43)
--- NOTE | 2024-06-08 15:34 | NUR ---
PT DISCHARGED WITH DC INSTRUCTIONS 1315. FAMILY INSTRUCTED ON DRESSING CHANGE TO R FOOT.STATE UNDERSTANDING OF PROCEDURE. SENT HOME WITH DRESSING SUPPLIES AND BELONGINGS. WHEELCHAIR OUT TO PRIVATE CAR TO DC HOME
== END 2024-06-08 13:34 | disposition home health service (06) | DRG 617 ==
LOC: ER 17:02 → ERHOLD 06-01 00:29 → MEDS 06-01 00:29 → PCU 06-01 00:29 → MEDS 06-01 13:58 → PCU 06-03 17:07 → MEDS 06-04 23:15
PROVIDERS: Internal Medicine; Physician Assistant; Podiatrist; Student in an Organized Health Care Education/Training Program; ADMIT Internal Medicine
PROC: 047S3ZZ Dilation of Left Posterior Tibial Artery, Percutaneous Approach (ICD-10-PCS; 2024-06-03)
PROC: 047N3ZZ Dilation of Left Popliteal Artery, Percutaneous Approach (ICD-10-PCS; 2024-06-03)
PROC: 0Y6M0ZC Detachment at Right Foot, Partial 3rd Ray, Open Approach (ICD-10-PCS; 2024-06-04)
PROC: 0Y6M0ZB Detachment at Right Foot, Partial 2nd Ray, Open Approach (ICD-10-PCS; principal; 2024-06-04 13:00)
DX: E11.69 Type 2 diabetes mellitus with other specified complication (principal); L03.115 Cellulitis of right lower limb; M86.171 Other acute osteomyelitis, right ankle and foot; M86.8X7 Other osteomyelitis, ankle and foot; Z16.19 Resistance to other specified beta lactam antibiotics; E11.622 Type 2 diabetes mellitus with other skin ulcer; Z66 Do not resuscitate; I70.245 Atherosclerosis of native arteries of left leg with ulceration of other part of foot; E11.51 Type 2 diabetes mellitus with diabetic peripheral angiopathy without gangrene; L97.514 Non-pressure chronic ulcer of other part of right foot with necrosis of bone; I10 Essential (primary) hypertension; Z88.8 Allergy status to other drugs, medicaments and biological substances; E11.42 Type 2 diabetes mellitus with diabetic polyneuropathy; E78.5 Hyperlipidemia, unspecified; F17.210 Nicotine dependence, cigarettes, uncomplicated; Z79.899 Other long term (current) drug therapy; Z79.82 Long term (current) use of aspirin; Z79.84 Long term (current) use of oral hypoglycemic drugs; Z79.02 Long term (current) use of antithrombotics/antiplatelets; Z89.421 Acquired absence of other right toe(s)
CPT/HCPCS: 36415; 73620; 73720; 76937; 80048; 80053; 80202; 82947; 83036; 83605; 85025; 87040; 87071; 87075; 87077; 87186; 87205; 88305; 88311; 94760; 97110; 97161; 99152; 99153; 99285-25; A9270; A9579; C1725; C1760; C1769; C1887; C1894; J0692; J0696; J1644; J1815; J1885; J2250; J2704; J3010; J3370; J7030; J7040; J7050; J7120; Q9967

== ENCOUNTER → 2024-05-31 | Outpatient (CLI) | payer OTHER | LOC: LAB SHORT 17:57 → LAB 17:57 | DX: L03.031 Cellulitis of right toe (principal) | CPT/HCPCS: 87070; 87075; 87077; 87186; 87205 ==

== ENCOUNTER 2024-06-09 11:46 | Day surgery (SDC) | payer OTHER ==
[~2024-06-09 11:46] MED LIST changes: +CIPR500 PO; +COMBIVENT RESPIM4 G1 INH; +DOCU100 PO; +JUVEN PACKET1 EAC3 PO; +OXYC5 PO; +VISBIOME 112.51 EACH PO
== END 2024-06-09 23:00 | disposition home or self-care (01) ==
LOC: WOUND 11:46
DX: T81.31XA Disruption of external operation (surgical) wound, not elsewhere classified, initial encounter (principal); E11.40 Type 2 diabetes mellitus with diabetic neuropathy, unspecified; I10 Essential (primary) hypertension; Z89.421 Acquired absence of other right toe(s)
CPT/HCPCS: A6196; G0463

== ENCOUNTER 2024-06-14 04:27 | Day surgery (SDC) | payer OTHER | END 2024-06-14 23:18 | disposition home or self-care (01) | LOC: WOUND 04:27 | DX: T81.31XA Disruption of external operation (surgical) wound, not elsewhere classified, initial encounter (principal); E11.621 Type 2 diabetes mellitus with foot ulcer; E11.40 Type 2 diabetes mellitus with diabetic neuropathy, unspecified | CPT/HCPCS: A6196 ==

== ENCOUNTER 2024-06-22 03:29 | Day surgery (SDC) | payer OTHER | END 2024-06-22 23:00 | disposition home or self-care (01) | LOC: WOUND 03:29 | DX: T81.31XA Disruption of external operation (surgical) wound, not elsewhere classified, initial encounter (principal); E11.621 Type 2 diabetes mellitus with foot ulcer; L97.518 Non-pressure chronic ulcer of other part of right foot with other specified severity; E11.40 Type 2 diabetes mellitus with diabetic neuropathy, unspecified; E11.51 Type 2 diabetes mellitus with diabetic peripheral angiopathy without gangrene; Z89.421 Acquired absence of other right toe(s); Y83.5 Amputation of limb(s) as the cause of abnormal reaction of the patient, or of later complication, without mention of misadventure at the time of the procedure; Z98.890 Other specified postprocedural states | CPT/HCPCS: 73630 ==

== ENCOUNTER 2024-06-29 06:14 | Day surgery (SDC) | payer OTHER | END 2024-06-29 23:00 | disposition home or self-care (01) | LOC: WOUND 06:14 | DX: E11.621 Type 2 diabetes mellitus with foot ulcer (principal); L97.519 Non-pressure chronic ulcer of other part of right foot with unspecified severity; T81.31XA Disruption of external operation (surgical) wound, not elsewhere classified, initial encounter; E11.40 Type 2 diabetes mellitus with diabetic neuropathy, unspecified; E11.51 Type 2 diabetes mellitus with diabetic peripheral angiopathy without gangrene; Y83.8 Other surgical procedures as the cause of abnormal reaction of the patient, or of later complication, without mention of misadventure at the time of the procedure ==

== ENCOUNTER → 2024-09-08 | Outpatient (CLI) | payer OTHER | LOC: LAB 17:14 → LAB SHORT 17:14 | DX: E11.52 Type 2 diabetes mellitus with diabetic peripheral angiopathy with gangrene (principal); E11.69 Type 2 diabetes mellitus with other specified complication; M86.271 Subacute osteomyelitis, right ankle and foot; E11.622 Type 2 diabetes mellitus with other skin ulcer; L97.512 Non-pressure chronic ulcer of other part of right foot with fat layer exposed | CPT/HCPCS: 87071; 87075; 87077; 87147; 87186; 87205 ==

== ENCOUNTER 2024-09-30 12:16 | Inpatient (IN) | payer OTHER ==
[~2024-09-30] VITALS: Ht 177.8 cm; Wt 111.6 kg
[~2024-09-30 12:16] MED LIST changes: +SULTRIDS PO
[2024-09-30] MEDS ORDERED: ACETAMINOPHEN500 MG PO (12:31)
[2024-09-30] MEDS ORDERED: COMBIVENT RESPIM4 G1 INH (12:32)
[2024-09-30] MEDS ORDERED: MONT10T PO (12:35)
[2024-09-30] MEDS ORDERED: OZEMPIC0.25 MG/02 SC (12:35)
[2024-09-30] MEDS ORDERED: KOURZEQ5 GM TOP (12:39)
[2024-09-30] MEDS ORDERED: Percocet 5-3251 EACH PO (12:43)
[2024-09-30 16:40] VITALS: BP 157/75
[2024-09-30] MEDS ORDERED: Ondansetron HCl 2 MG / ML 2ML Vial IV PRN (17:00)
--- NOTE | 2024-09-30 17:17 | NUR ---
ADMIT PT ARRIVAL TO UNIT AT APPROX 1630 DIRECT ADMIT WITH FAMILY AT SIDE. PT A+O X4. ADMIT FOR R FOOT OSTEOMYELITIS. R FOOT WRAPPED WITH KERLEX WITH OLD DRIED BROWN DRAINAGE PRESENT. PT DENIES PAIN AND REPORTS NEUROPATHY TO BLE. ABLE TO AMBULATE WITH CANE WITH [address] FLYNN AT BEDSIDE. PLAN FOR IV ABX, LABS, NPO AFTER MIDNIGHT FOR SURGERY TOMORROW WITH DR. MCFADDEN. ORIENTED TO CALL LIGHT AND EDUCATED ON TREATMENT PLAN.
[2024-09-30 17:22] LABS: Hematocrit 39.2 % (37.0-53.0); Hemoglobin 12.7 g/dL (13.5-17.5); Mean Corpuscular HGB 25.9 pg (26.0-34.0); Mean Corpuscular HGB Conc 32.4 g/dL (31.5-36.5); Mean Corpuscular Volume 80 fL (80-100); Mean Platelet Volume 9.4 fL (9.1-12.4); Platelet Count 230 K/mm3 (150-400); Red Blood Cell Count 4.91 M/mm3 (4.30-5.90); White Blood Cell Count 9.68 K/mm3 (4.00-11.30)
[2024-09-30 17:34] LABS: International Normalized Ratio 1.07; Prothrombin Time Results 11.4 Sec (9.7-11.5)
[2024-09-30] MEDS ORDERED: Acetaminophen 500 MG Tab PO PRN (17:40)
[2024-09-30 17:44] LABS: Albumin, Blood 3.2 g/dL (3.4-5.0); Albumin/Globulin Ratio 0.9 (0.8-1.8); Bilirubin, Total 0.2 mg/dL (0.1-1.0); Bun/Creatinine Ratio 23.5 (12.0-20.0); Calcium, Blood 9.1 mg/dL (8.5-10.1); Creatinine, Blood 1.53 mg/dL (0.60-1.20); Globulin, Blood 3.5 g/dL (2.2-4.0); Potassium, Blood 3.9 mmol/L (3.5-5.5); Total Protein, Blood 6.7 g/dL (6.4-8.2)
[2024-09-30] MEDS ORDERED: OxyCODONE 5 mg/Acetamin 325 mg TABLET PO PRN (17:45)
--- NOTE | 2024-09-30 17:53 | NUR ---
REQUESTED CURRENT MED LIST FROM [facility].
[2024-09-30] MEDS ORDERED: Albuterol HFA200 ACT/6.7 GM INH INH PRN (17:55)
[2024-09-30] MEDS ORDERED: OXYC5 PO (18:30)
[2024-09-30] MEDS ORDERED: SULTRIDS PO (18:31)
[2024-09-30] MEDS ORDERED: CLOP75 PO (18:33)
[2024-09-30 19:43] VITALS: BP 129/69
[2024-09-30] MEDS ORDERED: Atorvastatin 10 MG Tab PO SCH (21:00)
[2024-10-01] VITALS (9 sets, daily range): BP systolic 120–152; BP diastolic 61–84
--- NOTE | 2024-10-01 06:18 | NUR ---
ETIOLOGIST SUMMARY NO ACUTE CHANGES THIS SHIFT. PT AAOX4 AND STANDBY ASSIST WITH HIS CANE. REPORTS VERY MINIMAL PAIN AND DENIES NEEDING PAIN MEDS FOR R FOOT WOUNDS. HAS BEEN NPO SINCE MIDNIGHT IN PREP FOR SURGERY LATER TODAY. VITALS STABLE, WILL CONTINUE TO MONITOR.
[2024-10-01] MEDS ORDERED: Fluticasone 0.05% Nasal Spray SCH (09:00)
[2024-10-01] MEDS ORDERED: Aspirin 81 MG TabEC PO SCH (09:00)
[2024-10-01] MEDS ORDERED: Clopidogrel Bisulfate 75 MG Tab PO SCH (09:00)
[2024-10-01] MEDS ORDERED: Tamsulosin HCl 0.4 MG Cap PO SCH (09:00)
[2024-10-01] MEDS ORDERED: Montelukast Sodium 10 MG Tab PO SCH (09:00)
[2024-10-01] MEDS ORDERED: Losartan Potassium 50 MG Tab PO SCH (09:00)
[2024-10-01] MEDS ORDERED: Lactated Ringer's 1,000 ML IV SCH (12:05)
--- NOTE | 2024-10-01 12:12 | NUR ---
PT TO DAY SURGERY AT APPROX 1200.
[2024-10-01] MEDS ORDERED: CeFAZolin Sodium 2,000 MG in NS 100 ML IV SCH (12:30)
[2024-10-01] MEDS ORDERED: Lidocaine HCl 1% 30 ML SDV ONE (12:34)
[2024-10-01] MEDS ORDERED: Bupivacaine 0.5% HCl 5 MG/ML 30MLVIAL ONE (12:35)
[2024-10-01] MEDS ORDERED: CeFAZolin Sodium 2,000 MG VIAL ONE (12:35)
[2024-10-01] MEDS ORDERED: propofoL 50 ML IV ONE (12:36)
--- NOTE | 2024-10-01 12:47 | NUR ---
PRE PROCEDURE NOTE PT A&OX4, CALM, BREATHING RA. NO COMPLAINTS. VSS. DENTURES IN PLACE FOR SURGERY- OKAY PER ANESTHESIA PROVIDER. GLASSES SENT BACK TO PACU. Patient confirms NPO status and agrees with scheduled surgery. Pre-Op teaching done. Pt verbalizes understanding.
[2024-10-01] MEDS ORDERED: Lidocaine HCl 2% 20 ML MDV ONE (12:51)
--- NOTE | 2024-10-01 14:20 | NUR ---
RETURNED FOR OR PT ARRIVED FROM PACU BACK TO ROOM 229 S/P RIGHT 4TH AND 5TH TOE AMPUTATION. PT ONLY RECEIVED MAC. PT AWAKE DENIES PAIN OR N/V. RIGHT FOOT DRESSING INTACT, GAUZE AND HARSHA WRAP, NO DRAINAGE NOTED. ELEVATED UP ON PILLOWS. VSS AFEBRILE.
--- NOTE | 2024-10-01 16:52 | NUR ---
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 WRAPPED IN GAUZE + HARSHA WRAP AND CONTINUES TO BE CDI. PT CAN WIGGLE BIG TOE AND CAP REFILL <3 SECONDS. PT DENIES PAIN. OOB WITH CANE WITH 1 ASSIST. NWB. POST OP VSS. USES CALL LIGHT APPROPRIATELY.
[2024-10-01] MEDS ORDERED: Ciprofloxacin 200MG/100ML 100 ML IV SCH (17:00)
[2024-10-01] MEDS ORDERED: NS 250 ML IV PRN (17:05)
--- NOTE | 2024-10-01 21:06 | NUR ---
Pt stated, "the pain is going up in levels." RN notified, was told they would look in to see what they could do.
[2024-10-01] MEDS ORDERED: FentaNYL Citrate 50 MCG/ML 2 ML Injection IV PRN (21:15)
[2024-10-02] MEDS ORDERED: CeFAZolin Sodium 1,000 MG in NS 50 ML IV SCH
[2024-10-02 00:27] VITALS: BP 132/73
[2024-10-02 02:39] VITALS: BP 131/65
[2024-10-02 07:06] VITALS: BP 130/65
--- NOTE | 2024-10-02 08:12 | NUR ---
SHIFT SUMMARY NOC. PT POD 1 FOR 4TH AND 5TH TRANSMETATARSAL AMPUTATION R/T OSTEOMYELITIS. DRESSING ON RIGHT FOOT C/D/I. SENSATION TO PALPATION INTACT, REPORTS BASELINE NEUROPATHY. PT'S PAIN DIFFICULT TO CONTROL THIS SHIFT. DIESEL SCOOP OPERATOR CALLED HOSPITALIST AND RECEIVED NEW ORDERS FOR IV FENT 25-50 MCG. PT HAD CONTINUED PAIN AFTER 25MCG. REPORTED BETTER RELIEF WITH 50 MCG. ALSO RECEIVING ORAL PERCOCET 5/325 Q 6 HOURS. PT HAD NO DESAT EVENTS AFTER IV PAIN MEDS. PT VOIDING URINE. PT MAKES NEEDS KNOWN, CALL LIGHT IN REACH.
[2024-10-02] MEDS ORDERED: OxyCODONE 5 mg/Acetamin 325 mg TABLET PO PRN (11:15)
[2024-10-02 14:52] VITALS: BP 139/76
--- NOTE | 2024-10-02 15:42 | NUR ---
SUMMARY NO ACUTE CHANGES THUS FAR IN SHIFT. MEDICATED PT PER ORDERS FOR PAIN. PT SAT UP IN CHAIR FOR PART OF SHIFT. NOW RESTING IN BED, CALL LIGHT IN REACH. DRESSING TO MEHREENE ANN. REPORT GIVEN AND CARE TURNED OVER TO DAGO Delvalle RN.
--- NOTE | 2024-10-02 19:36 | NUR ---
CARE ASSUMED OF PT AT 1600. NO CHANGES TO REPORT SINCE CARE WAS ASSUMED. BEDSIDE REPORT GIVEN TO NOC RN.
[2024-10-02 19:51] VITALS: BP 136/72
[2024-10-03 02:36] VITALS: BP 139/69
[2024-10-03 05:45] LABS: Hematocrit 36.3 % (37.0-53.0); Hemoglobin 11.8 g/dL (13.5-17.5); Mean Corpuscular HGB 26.2 pg (26.0-34.0); Mean Corpuscular HGB Conc 32.5 g/dL (31.5-36.5); Mean Corpuscular Volume 81 fL (80-100); Mean Platelet Volume 9.2 fL (9.1-12.4); Platelet Count 201 K/mm3 (150-400); RDW Coefficient Variation 15.9 % (11.7-14.2); RDW Standard Deviation 46.1 fL (35.1-46.3); Red Blood Cell Count 4.51 M/mm3 (4.30-5.90); White Blood Cell Count 7.55 K/mm3 (4.00-11.30)
[2024-10-03 06:12] LABS: Albumin, Blood 2.9 g/dL (3.4-5.0); Anion Gap 10 mmol/L (3-11); Blood Urea Nitrogen 18 mg/dL (8-24); Bun/Creatinine Ratio 13.8 (12.0-20.0); CO2, Blood 24 mmol/L (21-32); Calcium, Blood 8.6 mg/dL (8.5-10.1); Chloride, Blood 105 mmol/L (98-108); Glomerular Filtration Rate 55 (60-); Glucose, Blood 129 mg/dL (70-99); Magnesium, Blood 2.3 mg/dL (1.6-2.4); Phosphorus, Blood 2.8 mg/dL (2.5-4.9); Potassium, Blood 4.2 mmol/L (3.5-5.5); Sodium, Blood 135 mmol/L (136-145)
[2024-10-03 07:04] VITALS: BP 142/75
--- NOTE | 2024-10-03 09:07 | NUR ---
SHIFT SUMMARY NOC. PT POD 2 FOR 4TH AND 5TH TMA R/T OSTEOMYELITIS. DRESSING ON RIGHT FOOT C/D/I. PT'S PAIN MANAGEMENT IMPROVED THIS SHIFT. PT MEDICATED FOR PAIN X1. PT AMBULATING TO BATHROOM WITH HEEL TOUCH WB AND NWB TO SURGICAL SITE. PT VOIDING URINE AND TOLERATING PO. CALL LIGHT IN REACH.
[2024-10-03] MEDS ORDERED: AMOCLA875 PO (12:21)
--- NOTE | 2024-10-03 12:48 | NUR ---
DISCHARGE DISCHARGE HOME WITH FAMILY. ESCORTED OUT VIA W/C. ORDERS FAXED TO [facility]. FAMILY AWARE THAT [facility] IS CLOSED TODAY. THEY WILL CALL WORKER PERSON TOMORROW. CARE ONGOING.
[2024-10-04] MEDS ORDERED: Misc. Injectable SC SCH (09:00)
== END 2024-10-03 12:59 | disposition home or self-care (01) | DRG 617 ==
LOC: SURS 16:23
PROVIDERS: Internal Medicine; Podiatrist; ADMIT Hospitalist
PROC: 0Y6M0ZD Detachment at Right Foot, Partial 4th Ray, Open Approach (ICD-10-PCS; principal; 2024-10-01 12:30)
PROC: 0Y6M0ZF Detachment at Right Foot, Partial 5th Ray, Open Approach (ICD-10-PCS; 2024-10-01 12:30)
DX: E11.69 Type 2 diabetes mellitus with other specified complication (principal); E11.52 Type 2 diabetes mellitus with diabetic peripheral angiopathy with gangrene; M86.271 Subacute osteomyelitis, right ankle and foot; M86.671 Other chronic osteomyelitis, right ankle and foot; E11.621 Type 2 diabetes mellitus with foot ulcer; I70.235 Atherosclerosis of native arteries of right leg with ulceration of other part of foot; I10 Essential (primary) hypertension; L97.514 Non-pressure chronic ulcer of other part of right foot with necrosis of bone; E78.5 Hyperlipidemia, unspecified; Z87.891 Personal history of nicotine dependence; Z89.421 Acquired absence of other right toe(s); Z88.8 Allergy status to other drugs, medicaments and biological substances; Z79.899 Other long term (current) drug therapy; Z79.891 Long term (current) use of opiate analgesic; Z79.85 Long-term (current) use of injectable non-insulin antidiabetic drugs; Z79.84 Long term (current) use of oral hypoglycemic drugs; Z79.82 Long term (current) use of aspirin
CPT/HCPCS: 36415; 80053; 80069; 82947; 83735; 85027; 85610; 85651; 87071; 87075; 87077; 87147; 87186; 87205; 88305; 88311; 94760; A9270; J0690; J0744; J2704; J3010; J7050; J7120

== ENCOUNTER 2025-04-18 08:21 | Emergency (ER) | payer OTHER ==
[~2025-04-18] VITALS: Ht 177.8 cm; Wt 113.4 kg
[~2025-04-18 08:21] MED LIST changes: +ACETAMINOPHEN500 MG PO; +AMOCLA875 PO; +KOURZEQ5 GM TOP; +Percocet 5-3251 EACH PO
[2025-04-18] MEDS ORDERED: Ketorolac Tromethamine 15mg Vial IM ONE (09:00)
[2025-04-18] MEDS ORDERED: OXYACE7.5T PO (11:13)
[2025-04-18 11:22] VITALS: BP 151/86
== END 2025-04-18 11:24 | disposition home or self-care (01) ==
LOC: ER 08:21
DX: S52.572A Other intraarticular fracture of lower end of left radius, initial encounter for closed fracture (principal); W18.30XA Fall on same level, unspecified, initial encounter; Z88.8 Allergy status to other drugs, medicaments and biological substances; Z79.82 Long term (current) use of aspirin; Z79.899 Other long term (current) drug therapy; Z59.6 Low income; Z59.89 Other problems related to housing and economic circumstances
CPT/HCPCS: 25605; 70450; 73030; 73110; 96372-59; 99284-25; A9270; J1885